=== PATIENT | female | born 1990 | race Caucasian/White ===

== ENCOUNTER 2024-02-16 08:33 | Emergency (ER) | payer MEDICAID ==
[~2024-02-16] VITALS: Ht 175.3 cm; Wt 118.0 kg
[2024-02-16 08:41] VITALS: O2SAT 99
[2024-02-16 08:46] VITALS: BP 160/88; PULSE 82; RESP 18; O2SAT 98
[2024-02-16 10:22] VITALS: TEMP 98.4
[2024-02-16] MEDS: ACETAMINOPHEN 325MG TABLET PO ONE (10:22)
[2024-02-16] MEDS: TETANUS, DIPHTHERIA, PERTUSSIS VAC/PF 0.5ML (>10YR OLD) IM ONE (10:35)
== END 2024-02-16 11:13 | disposition home or self-care (01) ==
LOC: ER 08:33
DX: M79.671 Pain in right foot (principal); Z90.49 Acquired absence of other specified parts of digestive tract; Z90.89 Acquired absence of other organs; W23.0XXA Caught, crushed, jammed, or pinched between moving objects, initial encounter; Y93.89 Activity, other specified; Y92.89 Other specified places as the place of occurrence of the external cause; Y99.8 Other external cause status
CPT/HCPCS: 73630; 99283